=== PATIENT | female | born 1990 | race Caucasian/White ===

== ENCOUNTER 2018-11-02 09:08 | Emergency (ER) | payer OTHER ==
[~2018-11-02] VITALS: Ht 152.4 cm; Wt 83.0 kg
[~2018-11-02 09:08] MED LIST: ALBUTEROL17 G1; KETO10TA2 PO; METOZOLV ODT5 MG PO; ORPH100T PO; PEPCID40 MG PO
[2018-11-02] MEDS ORDERED: SYNTHROID50 MCG (09:29)
== END 2018-11-02 14:12 | disposition home or self-care (01) ==
LOC: ER 09:08
DX: G43.909 Migraine, unspecified, not intractable, without status migrainosus (principal)